=== PATIENT | male | born 1970 | race Caucasian/White ===

== ENCOUNTER 2019-09-19 11:35 | Emergency (ER) | payer MEDICARE, MEDICAID ==
[~2019-09-19] VITALS: Ht 177.8 cm; Wt 97.3 kg
--- NOTE | 2019-09-19 11:50 | NUR ---
PT BIB [facility] "HE SMOKED A CIG AND THEN GOT DIZZY AND SOB". BP WAS 187/137 WHEN [facility] PICKED HIM UP. CURRENTYL ITS 168/109. PT STATES HE HAS BP MEDS AND DOESNT WHAT ITS CALLED BUT TAKES IT. 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 CALL LIGHT WITHIN REACH
[2019-09-19 12:21] LABS: BASOPHILS # (AUTO) 0.02 x10^3/uL (0-0.1); BASOPHILS % (AUTO) 0 % (0-1); EOSINOPHILS # (AUTO) 0.12 x10^3/uL (0-0.4); EOSINOPHILS % (AUTO) 1 % (1-7); LYMPHOCYTES # (AUTO) 2.87 x10^3/uL (1-3.4); LYMPHOCYTES % (AUTO) 28 % (22-44); MD NO; MEAN CORPUSCULAR HEMOGLOBIN 31.4 pg (27.5-34.5); MEAN CORPUSCULAR HGB CONC 34.3 g/dL (33.2-36.2); MEAN CORPUSCULAR VOLUME 91.6 fL (81-97); MEAN PLATELET VOLUME 7.4 fL (7.4-10.4); MONOCYTES # (AUTO) 0.83 x10^3/uL (0.2-0.8); MONOCYTES % (AUTO) 8 % (2-9); NEUTROPHILS # (AUTO) 6.43 x10^3/uL (1.8-6.8); NEUTROPHILS % (AUTO) 63 % (42-75); PLATELET COUNT 398 x10^3/uL (130-400); RED BLOOD COUNT 5.43 x10^6/uL (4.38-5.82); RED CELL DISTRIBUTION WIDTH 13.4 % (9.4-14.8)
[2019-09-19 12:33] LABS: ALBUMIN 3.7 g/dL (3.4-5.0); ANION GAP 5 mmol/L (5-15); CALCIUM 8.6 mg/dL (8.5-10.1); CHLORIDE 101 mmol/L (98-107)
[2019-09-19 12:34] VITALS: BP 160/90
[2019-09-19] MEDS ORDERED: BLOOD PRESSURE (12:36)
[2019-09-19 12:38] LABS: CREATININE 0.69 mg/dL (0.7-1.3); TROPONIN I < 0.015 ng/mL (0.000-0.045)
--- NOTE | 2019-09-19 12:40 | NUR ---
PT AMBULATED TO RESTROOM
== END 2019-09-19 14:22 | disposition home or self-care (01) ==
LOC: ED 12:53
DX: R42 Dizziness and giddiness (principal); R51 Headache; I10 Essential (primary) hypertension
CPT/HCPCS: 36415; 70450; 71045; 80048; 82040; 84484; 85025; 93005; 99284